=== PATIENT | female | born 1940 | race Caucasian/White ===

== ENCOUNTER 2023-09-14 08:55 | Inpatient (IN) | payer MEDICARE ==
[2023-09-14] VITALS (12 sets, daily range): BP systolic 101–126; BP diastolic 48–66; TEMP 98.1–98.9; O2SAT 90–99
[~2023-09-14] VITALS: Ht 162.6 cm; Wt 45.4 kg
[~2023-09-14 08:55] MED LIST: LEVO500T90 PO
[2023-09-14] MEDS ORDERED: ONDANSETRON HCL/PF 4 MG/2 ML VIAL ONE (10:00)
[2023-09-14] MEDS ORDERED: PANTOPRAZOLE 40 MG VIAL ONE (10:00)
[2023-09-14] MEDS: ONDANSETRON HCL/PF 4 MG/2 ML VIAL IVP ONE (10:01)
[2023-09-14] MEDS: PANTOPRAZOLE 40 MG VIAL IV ONE (10:01)
[2023-09-14 10:06] LABS: BASOPHILS # (AUTO) 0.1 K/uL (0.0-0.2); BASOPHILS % (AUTO) 0.6 % (0.0-2.0); HEMATOCRIT 42 % (33-45); HEMOGLOBIN 13.8 g/dL (11.5-14.8); LYMPHOCYTES # (AUTO) 0.3 K/uL (0.8-4.8); LYMPHOCYTES % (AUTO) 1.9 % (20.0-44.0); MEAN CORPUSCULAR HEMOGLOBIN 28 PG (26.0-33.0); MEAN CORPUSCULAR HGB CONC 33 g/dl (31.0-36.0); MEAN CORPUSCULAR VOLUME 84 fL (82-100); MONOCYTES # (AUTO) 1.1 K/uL (0.1-1.30); MONOCYTES % (AUTO) 7.2 % (2.0-12.0); NEUTROPHILS # (AUTO) 13.8 K/uL (1.8-8.9); NEUTROPHILS % (AUTO) 90.3 % (43.0-81.0); PLATELET COUNT (AUTO) 339 K/uL (150-450); RED BLOOD CELL COUNT(AUTO) 5.03 MIL/uL (4.0-5.2); WHITE BLOOD COUNT (AUTO) 15.3 K/uL (4.3-11.0)
[2023-09-14 10:07] LABS: APPEARANCE,URINE CLOUDY (CLEAR); BILIRUBIN,URINE NEGATIVE (NEGATIVE); BLOOD, URINE 2+ Ery/uL (NEGATIVE); COLOR,URINE DARK YELLOW (YELLOW); KETONES,URINE TRACE mg/dL (NEGATIVE); LEUKOCYTE ESTERASE ,URINE 1+ (NEGATIVE); NITRITE, URINE NEGATIVE (NEGATIVE); PROTEIN,URINE 2+ mg/dl (NEGATIVE); UGLUCOSE NEGATIVE (NEGATIVE); UROBILINOGEN,URINE 0.2 EU/dL (0.2)
[2023-09-14 10:10] LABS: ADD URINE CULTURE YES; BACTERIA,URINE Few /HPF (None Seen); SQUAMOUS EPITHELIAL CELL,UR Rare /HPF (None Seen); WBC,URINE 21-50 /HPF (0-3)
[2023-09-14 10:15] LABS: CARBON DIOXIDE 25 mmol/L (21-32); CHLORIDE 99 mmol/L (98-107); CREATININE 0.7 mg/dL (0.6-1.3); GLUCOSE 159 mg/dL (74-106); POTASSIUM 4.1 mmol/L (3.5-5.1); SODIUM SERUM 136 mmol/L (136-145); UREA NITROGEN, BLOOD 27 mg/dL (7-18)
[2023-09-14 10:20] LABS: ALANINE AMINOTRANSFERASE 16 U/L (12-78); ALBUMIN 2.8 g/dL (3.4-5.0); ALKALINE PHOSPHATASE 78 U/L (46-116); ASPARTATE AMINOTRANSFERASE 15 U/L (15-37); BILIRUBIN,DIRECT 0.1 mg/dL (0.0-0.2); BILIRUBIN,TOTAL 0.5 mg/dL (0.2-1.0); LIPASE 112 U/L (16-77); TOTAL PROTEIN, SERUM 6.9 g/dL (6.4-8.2)
[2023-09-14] MEDS ORDERED: PIPERACI/TAZO 3.375GM/D5W 50ML PB IV ONE (10:28)
[2023-09-14] MEDS: PIPERACILLIN /TAZOBACTAM 3.375 G in IV D5W 50 ML IV ONE (10:28)
[2023-09-14] MEDS ORDERED: ACET325T53 PO (10:41)
[2023-09-14] MEDS ORDERED: IPRA3AMP23 IH (10:41)
[2023-09-14] MEDS ORDERED: CYAN200017 PO (10:41)
[2023-09-14] MEDS ORDERED: GUAI-1189 PO (10:41)
[2023-09-14] MEDS ORDERED: MULT-213 PO (10:41)
[2023-09-14] MEDS ORDERED: CHOL200059 PO (10:41)
[2023-09-14] MEDS ORDERED: POLY17PO4 PO (10:41)
[2023-09-14] MEDS ORDERED: ATOR20TA PO (10:41)
[2023-09-14] MEDS ORDERED: FERR325T23 PO (10:41)
[2023-09-14] MEDS: MULTIVIT W/MINERALS 1 TAB TABLET PO SCH (11:30)
[2023-09-14] MEDS ORDERED: ONDANSETRON HCL/PF 4 MG/2 ML VIAL IVP PRN (11:30)
[2023-09-14] MEDS: FERROUS SULFATE (325 MG) 325 MG/TAB TABLET PO SCH (11:30)
[2023-09-14] MEDS ORDERED: ACETAMINOPHEN 325 MG TABLET PO PRN (11:30)
[2023-09-14] MEDS: CHOLECALCIFEROL (VITAMIN D 3) 400 UNIT TABLET PO SCH (11:30)
[2023-09-14] MEDS ORDERED: POLYETHYLENE GLYCOL 3350 17 GM POWD.PACK PO PRN (11:30)
[2023-09-14] MEDS: CYANOCOBALAMIN 500 MCG TABLET PO SCH (11:30)
[2023-09-14] MEDS: ALBUTEROL FS 2.5 MG/0.5 ML VIAL.NEB NEB PRN (12:05)
[2023-09-14] MEDS: IPRATROPIUM NEB FS 0.5 MG/2.5 ML AMPUL.NEB NEB PRN (12:05)
[2023-09-14] MEDS ORDERED: IPRATROPIUM NEB FS 0.5 MG/2.5 ML AMPUL.NEB ONE (12:07)
[2023-09-14] MEDS ORDERED: ALBUTEROL FS 2.5 MG/0.5 ML VIAL.NEB ONE (12:07)
[2023-09-14] MEDS ORDERED: CHOLECALCIFEROL 1,000 UNIT TABLET (VIT D3) ONE (12:31)
[2023-09-14] MEDS ORDERED: FERROUS SULFATE (325 MG) 325 MG/TAB TABLET ONE (12:31)
[2023-09-14] MEDS ORDERED: MULTIVITAMINS,THERAGRAN 1 UDTAB TABLET ONE (12:31)
[2023-09-14] MEDS ORDERED: ALBUTEROL HALF STRENGTH 1.25 MG/3 ML VIAL.NEB NEB PRN (14:00)
[2023-09-14] MEDS ORDERED: IPRATROPIUM NEB FS 0.5 MG/2.5 ML AMPUL.NEB NEB PRN (14:00)
[2023-09-14] MEDS: IV NS 0.9% 1,000 ML IV PRN (15:00)
[2023-09-14] MEDS: ACETYLCYSTEINE 10% SOLN 400 MG/4 ML VIAL NEB SCH (15:22)
[2023-09-14] MEDS: IPRATROPIUM NEB FS 0.5 MG/2.5 ML AMPUL.NEB NEB SCH (15:22)
[2023-09-14] MEDS: ALBUTEROL HALF STRENGTH 1.25 MG/3 ML VIAL.NEB NEB SCH (15:23)
[2023-09-14] MEDS: PIPERACILLIN /TAZOBACTAM 3.375 G in IV D5W 100 ML IV SCH (18:08)
[2023-09-14] MEDS: ATORVASTATIN 10 MG TABLET PO SCH (21:25)
[2023-09-15] VITALS (13 sets, daily range): BP systolic 115–155; BP diastolic 62–76; TEMP 97.3–98.4; O2SAT 92–99
[2023-09-15 07:27] LABS: EOSINOPHILS % (AUTO) 0.1 % (0.0-6.0); HEMATOCRIT 37 % (33-45); HEMOGLOBIN 12.4 g/dL (11.5-14.8); LYMPHOCYTES # (AUTO) 0.4 K/uL (0.8-4.8); LYMPHOCYTES % (AUTO) 3.4 % (20.0-44.0); MEAN CORPUSCULAR HEMOGLOBIN 28 PG (26.0-33.0); MEAN CORPUSCULAR HGB CONC 34 g/dl (31.0-36.0); MEAN CORPUSCULAR VOLUME 83 fL (82-100); MONOCYTES # (AUTO) 1.1 K/uL (0.1-1.30); MONOCYTES % (AUTO) 8.7 % (2.0-12.0); NEUTROPHILS % (AUTO) 87.8 % (43.0-81.0); PLATELET COUNT (AUTO) 320 K/uL (150-450); RED BLOOD CELL COUNT(AUTO) 4.41 MIL/uL (4.0-5.2); RED CELL DISTRIBUTION WIDTH 13.8 % (11.5-15.0); WHITE BLOOD COUNT (AUTO) 12.6 K/uL (4.3-11.0)
[2023-09-15 08:00] LABS: CALCIUM, SERUM 10.3 mg/dL (8.5-10.1); CREATININE 0.7 mg/dL (0.6-1.3); PHOSPHORUS 2.8 mg/dL (2.5-4.9); POTASSIUM 3.8 mmol/L (3.5-5.1)
[2023-09-15] MEDS: ACETYLCYSTEINE 10% SOLN 400 MG/4 ML VIAL NEB SCH (10:00)
[2023-09-15] MEDS: IPRATROPIUM NEB FS 0.5 MG/2.5 ML AMPUL.NEB NEB SCH (10:00)
[2023-09-15] MEDS: ENOXAPARIN SODIUM 40 MG/0.4 ML DISP.SYRIN SQ SCH (10:30)
[2023-09-15] MEDS ORDERED: IPRATROPIUM NEB FS 0.5 MG/2.5 ML AMPUL.NEB NEB PRN (12:35)
[2023-09-15] MEDS ORDERED: ALBUTEROL HALF STRENGTH 1.25 MG/3 ML VIAL.NEB NEB PRN (12:35)
[2023-09-16] VITALS (11 sets, daily range): BP systolic 119–147; BP diastolic 67–68; TEMP 97.5–98.2; O2SAT 92–99
[2023-09-16 07:27] LABS: BASOPHILS % (AUTO) 0.1 % (0.0-2.0); EOSINOPHILS # (AUTO) 0.2 K/uL (0.0-0.7); EOSINOPHILS % (AUTO) 1.6 % (0.0-6.0); HEMATOCRIT 36 % (33-45); HEMOGLOBIN 12.3 g/dL (11.5-14.8); LYMPHOCYTES # (AUTO) 0.5 K/uL (0.8-4.8); LYMPHOCYTES % (AUTO) 5.5 % (20.0-44.0); MEAN CORPUSCULAR HEMOGLOBIN 28 PG (26.0-33.0); MEAN CORPUSCULAR HGB CONC 34 g/dl (31.0-36.0); MEAN CORPUSCULAR VOLUME 83 fL (82-100); MONOCYTES # (AUTO) 0.9 K/uL (0.1-1.30); MONOCYTES % (AUTO) 9.5 % (2.0-12.0); NEUTROPHILS # (AUTO) 8.1 K/uL (1.8-8.9); NEUTROPHILS % (AUTO) 83.3 % (43.0-81.0); PLATELET COUNT (AUTO) 366 K/uL (150-450); RED BLOOD CELL COUNT(AUTO) 4.37 MIL/uL (4.0-5.2); RED CELL DISTRIBUTION WIDTH 13.6 % (11.5-15.0); WHITE BLOOD COUNT (AUTO) 9.7 K/uL (4.3-11.0)
[2023-09-16 08:24] LABS: CALCIUM, SERUM 10.3 mg/dL (8.5-10.1); CARBON DIOXIDE 28 mmol/L (21-32); CHLORIDE 104 mmol/L (98-107); CREATININE 0.6 mg/dL (0.6-1.3); GLUCOSE 126 mg/dL (74-106); PHOSPHORUS 2.2 mg/dL (2.5-4.9); POTASSIUM 3.6 mmol/L (3.5-5.1); SODIUM SERUM 142 mmol/L (136-145); UREA NITROGEN, BLOOD 16 mg/dL (7-18)
[2023-09-16] MEDS: ENSURE ENLIVE 237 ML LIQUID (VANILLA) PO SCH (08:43)
[2023-09-16] MEDS: NEUTRA PHOS 1 POWD.PACKET PO ONE (17:16)
[2023-09-17] VITALS (11 sets, daily range): BP systolic 125–136; BP diastolic 67–76; TEMP 97.7–98.4; O2SAT 92–99
[2023-09-17 07:24] LABS: BASOPHILS % (AUTO) 0.2 % (0.0-2.0); EOSINOPHILS # (AUTO) 0.2 K/uL (0.0-0.7); EOSINOPHILS % (AUTO) 1.9 % (0.0-6.0); HEMATOCRIT 34 % (33-45); HEMOGLOBIN 11.8 g/dL (11.5-14.8); LYMPHOCYTES # (AUTO) 0.7 K/uL (0.8-4.8); LYMPHOCYTES % (AUTO) 6.7 % (20.0-44.0); MEAN CORPUSCULAR HEMOGLOBIN 29 PG (26.0-33.0); MEAN CORPUSCULAR HGB CONC 34 g/dl (31.0-36.0); MEAN CORPUSCULAR VOLUME 83 fL (82-100); MONOCYTES % (AUTO) 9.6 % (2.0-12.0); NEUTROPHILS # (AUTO) 8.1 K/uL (1.8-8.9); NEUTROPHILS % (AUTO) 81.6 % (43.0-81.0); PLATELET COUNT (AUTO) 400 K/uL (150-450); RED BLOOD CELL COUNT(AUTO) 4.13 MIL/uL (4.0-5.2); RED CELL DISTRIBUTION WIDTH 13.5 % (11.5-15.0); WHITE BLOOD COUNT (AUTO) 9.9 K/uL (4.3-11.0)
[2023-09-17 07:29] LABS: CALCIUM, SERUM 9.8 mg/dL (8.5-10.1); CARBON DIOXIDE 30 mmol/L (21-32); CHLORIDE 105 mmol/L (98-107); CREATININE 0.5 mg/dL (0.6-1.3); GLUCOSE 110 mg/dL (74-106); MAGNESIUM 1.9 mg/dL (1.8-2.4); PHOSPHORUS 2.4 mg/dL (2.5-4.9); POTASSIUM 3.4 mmol/L (3.5-5.1); SODIUM SERUM 142 mmol/L (136-145); UREA NITROGEN, BLOOD 13 mg/dL (7-18)
[2023-09-17] MEDS: ACETYLCYSTEINE 10% SOLN 400 MG/4 ML VIAL ONE (07:50)
[2023-09-17] MEDS: POTASSIUM CHLORIDE 20 MEQ POWDER PACKET PO SCH (11:13)
[2023-09-17] MEDS: NEUTRA PHOS 1 POWD.PACKET PO ONE (17:48)
[2023-09-18] VITALS (10 sets, daily range): BP systolic 116–117; BP diastolic 69–71; TEMP 98.1–99.7; O2SAT 92–98
[2023-09-18] MEDS ORDERED: CEPH250S PO (13:52)
== END 2023-09-18 18:39 | DRG 205 ==
LOC: EDBD 08:55 → ER 08:55 → TELE 12:26 → MED 09-15 09:38
PROVIDERS: ADMIT Nurse Practitioner Acute Care
DX: T17.590A Other foreign object in bronchus causing asphyxiation, initial encounter (principal); R53.2 Functional quadriplegia; D68.59 Other primary thrombophilia; I69.354 Hemiplegia and hemiparesis following cerebral infarction affecting left non-dominant side; N39.0 Urinary tract infection, site not specified; J98.11 Atelectasis; K59.00 Constipation, unspecified; E78.5 Hyperlipidemia, unspecified; E86.0 Dehydration; K44.9 Diaphragmatic hernia without obstruction or gangrene; Z74.01 Bed confinement status; Z20.822 Contact with and (suspected) exposure to COVID-19; G89.29 Other chronic pain; W44.F9XA Other object of natural or organic material, entering into or through a natural orifice, initial encounter; Y93.9 Activity, unspecified; Y92.89 Other specified places as the place of occurrence of the external cause
CPT/HCPCS: 36415; 71045-TC; 71250-TC; 80048-TC; 80076-TC; 81001; 83690-TC; 83735-TC; 84100-TC; 85025-TC; 87081-TC; 87086-TC; 92526; 92611-TC; 94799-TC; 97110-TC; 97530-TC; A4223; C9113; G0378; J1650; J2405; J2543; J7030; J7060